=== PATIENT | female | born 1945 | race Caucasian/White ===

== ENCOUNTER 2018-01-13 03:19 | Emergency (ER) | payer MEDICARE, BC, MEDICAID ==
[~2018-01-13] VITALS: Wt 158.8 kg
[2018-01-13] MEDS ORDERED: VITAMIN C500 M8 PO (03:53)
[2018-01-13] MEDS ORDERED: NEURONTIN300 MG PO (03:53)
[2018-01-13] MEDS ORDERED: LEVOTHYROXINE100 MC1 PO (03:53)
[2018-01-13] MEDS ORDERED: MULTIVITAMINS1 EAC5 PO (03:54)
[2018-01-13] MEDS ORDERED: Lopressor25 MG PO (03:54)
[2018-01-13] MEDS ORDERED: ASPIRIN CHEWABL81 MG PO (03:54)
[2018-01-13] MEDS ORDERED: ZOCOR40 MG PO (03:55)
[2018-01-13] MEDS ORDERED: OXYBUTYNIN10 MG PO (03:55)
[2018-01-13] MEDS ORDERED: KEFLEX250 MG PO (03:56)
[2018-01-13] MEDS ORDERED: PRILOSEC20 M1 PO (03:56)
[2018-01-13] MEDS ORDERED: LINZESS290 MC1 PO (03:56)
[2018-01-13] MEDS ORDERED: ELIQUIS5 M1 PO (03:57)
[2018-01-13] MEDS ORDERED: XANAX0.25 MG PO (03:57)
[2018-01-13] MEDS ORDERED: AMITRIPTYLINE25 MG PO (04:00)
[2018-01-13] MEDS ORDERED: NORCO 5-325 TA1 EACH PO ×2 (04:00→04:01)
[2018-01-13] MEDS ORDERED: COLACE100 MG PO (04:02)
[2018-01-13 04:06] LABS: BILIRUBIN NEGATIVE (NEGATIVE); BLOOD 2+ (NEGATIVE); CLARITY CLOUDY (CLEAR); COLOR YELLOW (YELLOW); GLUCOSE NEGATIVE (NEGATIVE); KETONE NEGATIVE (NEGATIVE); LEUKO ESTERASE 3+ (NEGATIVE); NITRITE NEGATIVE (NEGATIVE); PH 5.5 (5.0-9.0); SPECIFIC GRAVITY 1.015 (1.005-1.030); UROBILINOGEN 0.2 E.U./dl (0.2-1.0)
[2018-01-13 04:18] LABS: WBC TNTC wbc/hpf (0-5)
[2018-01-13 05:31] LABS: BASO % 0.6 % (0.0-1.0); EOS # 0.5 10*3/uL (0.0-0.4); EOS % 8.9 % (1.0-4.0); HEMOGLOBIN 12.9 g/dl (12.0-16.0); LYMPH # 1.4 10*3/uL (1.3-4.4); LYMPH % 28.3 % (27.0-41.0); MEAN CELL VOLUME 100.7 fl (81.0-99.0); MEAN CORPUSCULAR HGB 31.7 pg (27.0-31.0); MEAN CORPUSCULAR HGB CONC 31.5 g/dl (33.0-37.0); MEAN PLATELET VOLUME 10.5 fl (9.6-12.3); MONO # 0.4 10*3/uL (0.1-1.0); MONO % 7.3 % (3.0-9.0); NEUT # 2.8 10*3/uL (2.3-7.9); NEUT % 54.7 % (47.0-73.0); PLATELET COUNT AUTOMATED 161 10*3/uL (130-400); RED BLOOD COUNT 4.07 10*6/uL (4.10-5.10); RED CELL DISTRI WIDTH 12.4 % (0-14.5); WHITE BLOOD COUNT 5.1 10*3/uL (4.8-10.8)
[2018-01-13 05:43] LABS: BUN 11 mg/dl (7-24); CHLORIDE 105 mmol/L (98-107); CREATININE 0.61 mg/dL (0.55-1.02); POTASSIUM 3.7 mmol/L (3.5-5.1); SODIUM 144 mmol/L (136-145)
[2018-01-13 05:44] LABS: ACETAMINOPHEN (TYLENOL) 6.9 ug/ml (10-30); ETHYL ALCOHOL < 3.0 mg/dl (<3)
[2018-01-13 05:49] LABS: URINE BARBITURATES < 200 (200ng/ml); URINE BENZODIAZEPINES > 200 (200ng/ml); URINE COCAINE < 300 (300ng/ml); URINE METHADONE < 300 (300ng/ml); URINE OPIATES > 300 (300ng/ml)
[2018-01-13 05:57] LABS: URINE AMPHETAMINES < 1000 (1000ng/ml); URINE CANNABINOIDS (THC) < 50 (50ng/ml)
[2018-01-13 06:21] LABS: URINE PHENCYCLIDINE < 25 (25ng/ml)
[2018-01-13] MEDS ORDERED: MACROBID100 M1 PO (11:34)
== END 2018-01-13 11:29 | disposition home or self-care (01) ==
LOC: ED 03:19
PROVIDERS: Emergency Medicine
DX: F32.9 Major depressive disorder, single episode, unspecified (principal); N39.0 Urinary tract infection, site not specified; R31.9 Hematuria, unspecified; Z79.899 Other long term (current) drug therapy; Z79.82 Long term (current) use of aspirin; Z91.041 Radiographic dye allergy status; Z88.5 Allergy status to narcotic agent

== ENCOUNTER 2018-08-18 16:01 | Inpatient (IN) | payer MEDICARE, MEDICAID ==
[~2018-08-18] VITALS: Ht 167.6 cm; Wt 98.4 kg
--- NOTE | ~2018-08-18 | WRIGHTHP ---
[place], [place] PATIENT HISTORY AND PHYSICAL EXAM NAME: MACK GALVEZ [facility] #: [id number] UNIT #: [id number] ROOM: 317 DOCTOR: NEEL WARNER CNP BIRTHDATE: [birth year] DOS: 08/19/2018 INITIAL PSYCHIATRIC EVALUATION CHIEF COMPLAINT: "I am not taking any of your medications". HISTORY OF PRESENT ILLNESS: This is a 73-year-old white female who was sent here from [facility] due to medical noncompliance, suicidal ideations. The patient reported that she had a plan to throw herself on the floor and hit her head. She has been hitting staff and refusing care. She has been delusional, thinking that her bed control is for to turn the light on. The patient denies to me that any of this information is true. She states that we are all liars. She was cleared medically through the Emergency Room and now she has been admitted to Behavioral Health Unit here at [place] to rule out any organic factors and to attempt to stabilize her on medications and engage her in individual and cerda milieu activity and then return her back to least restrictive environment when psychiatrically stable. PAST MEDICAL HISTORY: Remarkable for hypertension, major depression, polyneuropathy, right shoulder pain, flaccid neuropathic bladder, right below the knee amputation, anemia, hyperlipidemia, syringomyelia, peripheral vascular disease, gastroesophageal reflux disease, osteomyelitis, anxiety, hypothyroidism, vitamin D deficiency, morbid obesity, cataracts, esophagitis, gastritis, neuralgia. ALLERGIES: INCLUDE CODEINE AND IODINE COMPOUNDS. STRENGTHS: A desire to get better and return back to the facility. WEAKNESSES: Poor coping skills. MENTAL STATUS: She is alert and oriented x 3. Her mood is very labile. Affect is congruent with mood. No current paranoia or delusions noted. No current auditory or visual hallucinations noted. No gross psychosis. Her memory is intact for the most part. Her insight and judgment are poor. DIAGNOSES: Brief psychotic disorder, history of anxiety, history of major depressive disorder. PLAN: I will discontinue the Xanax 0.25 mg daily. Start the patient on Vistaril 25 mg 3 times a day, also started on Depakote 500 mg 3 times a day. We will continue Cymbalta 60 mg at bedtime. Due to the fact that the patient is here on a pink slip and is refusing to sign herself and we will proceed with the courts several commitments. We will check a VPA level in 2 days. Labs were reviewed. Her vitamin D and B12 levels are normal. H and H is normal. Sodium and potassium are normal. Glucose is normal. Hemoglobin A1c 5.2. We will continue to encourage the patient to engage in individual and cerda milieu activity. We will maintain fall and safety precautions and will plan to discharge the patient to the least restrictive environment when she is considered psychiatrically stable. [place], [place] PATIENT HISTORY AND PHYSICAL EXAM NAME: MACK GALVEZ UNIT #: [id number] ROOM: [facility] DOCTOR: NEEL WARNER CNP BIRTHDATE: [birth year] Neel Warner CNP CM:HISPHYS:PATIENT HISTORY AND PHYSICAL EXAMINATION [phone] NEEL WARNER CNP 08/19/18 1253 interface
--- NOTE | ~2018-08-18 | PR ---
[place], [place] PROGRESS NOTE [id number] #: [id number] ROOM: 317 DOCTOR: NEEL WARNER CNP BIRTHDATE: [birth year] DOS: 08/21/2018 CHIEF COMPLAINT: "I am fine." SUMMARY OF THE VISIT: The patient was interviewed. She was lying in bed in her room. She reports that she slept well last night. She reports that her mood is good. She denies feeling agitated or irritable. She reports that her appetite has been good. Staff reports that she has been taking her medications as prescribed. She has displayed no behaviors. She has been pleasant with staff and peers. MENTAL STATUS EXAMINATION: She is alert and oriented to person, place and time. She was pleasant and cooperative with me. There are no signs of alexandre or hypomania. No delusions or paranoia noted. No auditory or visual hallucinations noted. Her speech was clear with normal tone and rate. Eye contact was poor. PLAN: We will continue the patient's medications as prescribed; however, I am going to change the Depakote from Depakote syrup to Depakote Sprinkles 500 mg 3 times a day. We will plan to recheck her VPA level on Thursday. Today, the VPA level was 41. We will continue to encourage the patient to engage in individual and milieu activity. We will continue fall and safety precautions. We will plan to return the patient to the least restrictive environment when she is considered psychiatrically stable. Neel Warner CNP CM:PNTRANS [phone] NEEL WARNER CNP 08/22/18 0406 interface
--- NOTE | ~2018-08-18 | PR ---
[place], [place] PROGRESS NOTE [id number] #: [id number] ROOM: 317 DOCTOR: NEEL WARNER CNP BIRTHDATE: [birth year] DOS: 08/22/2018 CHIEF COMPLAINT: "I am doing just fine." SUMMARY OF VISIT: The patient was interviewed as she was sitting in the dining area. She reports that she slept well last night and that her appetite has been good. She reports that her mood is good. The staff reports that the patient has been cooperative. No behavior. She has been taking medications as prescribed. She has had some episodes of sleeping throughout the day, however. Otherwise, she is alert and oriented and she does arouse easily. MENTAL STATUS: She is alert and oriented to person, place and time. No alexandre or hypomania noted. No delusions or paranoia noted. No auditory or visual hallucinations noted. Her mood seems to be trending towards euthymia. No anxiety noted. Her speech is clear with normal tone and rate. Her eye contact was good. No tardive dyskinesia or extrapyramidal side effects noted. PLAN: I do plan to decrease the Risperdal to 0.25 mg twice a day to monitor to see if the patient has less episodes of sleeping during the day. Continue all other medications as prescribed. I will continue to encourage the patient to engage in individual and cerda milieu activity. We will continue fall and safety precautions. Plan to return the patient to the least restrictive environment when psychiatrically stable, which could be as soon as Thursday. Neel Warner CNP CM:PNTRANS [id number] NEEL WARNER CNP 08/22/184 interface
--- NOTE | ~2018-08-18 | DS ---
[place], [place] DISCHARGE SUMMARY NAME[id number] #: [id number] ROOM: 317 DOCTOR: SARAH BARNETT MD BIRTHDATE: [birth year] DOS: 08/23/2018 CHIEF COMPLAINT: "I am not taking any of your medications." HISTORY OF PRESENT ILLNESS: This is a 73-year-old white female who was sent here from [facility] in [place] due to medication and medical noncompliance with suicidal ideation and a plan. The patient reports that she had a plan to throw herself from her wheelchair onto the floor to hit her head. She has been hitting staff and refusing care. She has been very delusional and thinks that her bed control is to turn the lights on and off. She also believes that everyone there lies to her and deliberately is trying to get her. She is admitted now to rule out any organic factors to attempt to stabilize on medication and to return to the least restrictive environment when psychiatrically stable. SUMMARY OF HOSPITAL COURSE: The patient was admitted to the unit where her Xanax was discontinued in lieu of Vistaril 25 mg 3 times daily. Additionally, she was started on Depakote 500 mg 3 times a day to stabilize her mood and decrease her impulsivity. Initially, her Cymbalta was continued; however, this was discontinued later and Remeron 15 mg at bedtime was utilized in its place to more rapidly improve sleep and appetite. A small dose of Risperdal 0.25 mg twice daily was added to decrease her paranoia. She improved dramatically and rapidly with this combination and was sleeping and eating well. She was compliant with all aspects of her care. She was no longer paranoid, and she was not depressed. Efforts were made to find her a new placement at [facility], which she was very happy about. She was discharged there on the 08/23/2018. MENTAL STATUS AT DISCHARGE: She is alert and oriented to person, place, not necessarily time. Mood does seem to be euthymic. Affect more appropriate. There is no alexandre or hypomania. There is no gross psychosis. No paranoia. Short-term memory does have gaps, otherwise she is intact. FINAL DIAGNOSES: Intermittent explosive disorder, major depression, recurrent with psychotic features. DISPOSITION: All of her prescriptions have been printed and will be sent with her. I will be the treating psychiatrist upon her admission to [facility]. At the time of discharge, she was medically and psychiatrically stable. [place], [place] DISCHARGE SUMMARY NAME: MACK GALVEZ UNIT #: [id number] ROOM: [facility] DOCTOR: SARAH BARNETT MD BIRTHDATE: [birth year] SARAH BARNETT MD CM:DISCHARG [phone] SARAH BARNETT MD 08/23/18 1020 interface
[~2018-08-18 16:01] MED LIST: AMITRIPTYLINE25 MG PO; ASPIRIN CHEWABL81 MG PO; COLACE100 MG PO; ELIQUIS5 M1 PO; KEFLEX250 MG PO; LEVOTHYROXINE100 MC1 PO; LINZESS290 MC1 PO; Lopressor25 MG PO; MACROBID100 M1 PO; MULTIVITAMINS1 EAC5 PO; NEURONTIN300 MG PO; NORCO 5-325 TA1 EACH PO; OXYBUTYNIN10 MG PO; PRILOSEC20 M1 PO; VITAMIN C500 M8 PO; XANAX0.25 MG PO; ZOCOR40 MG PO
[2018-08-18] MEDS ORDERED: SENOKOT PO (16:18)
[2018-08-18] MEDS ORDERED: XANAX0.25 MG PO (16:19)
[2018-08-18] MEDS ORDERED: ESTRACE 0.01%42.5 GM V (16:21)
[2018-08-18] MEDS ORDERED: MACROBID100 M1 PO (16:23)
[2018-08-18] MEDS ORDERED: CYMBALTA60 MG PO (16:24)
[2018-08-18] MEDS ORDERED: B121000 MCG/1 IM (16:38)
[2018-08-18] MEDS ORDERED: VITAMIN D350000 UNIT PO (16:40)
[2018-08-18] MEDS ORDERED: IMODIUM A-D2 M2 PO (16:44)
[2018-08-18] MEDS ORDERED: PHENERGAN25 MG/1 ML PO (16:45)
[2018-08-18] MEDS ORDERED: ROBITUSSIN PEA118 ML PO (16:46)
[2018-08-18] MEDS ORDERED: SALINE NOSE SPR45 ML NAS (16:47)
[2018-08-18] MEDS ORDERED: BISACODYL10 MG R ×2 (16:48→16:54)
[2018-08-18] MEDS ORDERED: DULCOLAX5 M1 PO (16:50)
[2018-08-18] MEDS ORDERED: CITROMA296 ML PO (16:54)
[2018-08-18] MEDS ORDERED: Ipratropium Brom3 ML INH (16:56)
[2018-08-18] MEDS ORDERED: ANALGESIC CREME86 GM T (16:57)
[2018-08-18] MEDS ORDERED: TYLENOL325 M3 PO (19:32)
[2018-08-18 23:00] VITALS: BP 129/44; BP 129/64
--- NOTE | 2018-08-18 23:00 | NUR ---
MACK GALVEZ a 73 year old F admitted via stretcher from the EMERGENCY ROOM as a emergency 72 hr. hold admission. Arrived on unit at 2300. ALLERGIES: IVP DYE AND CODEINE. Vital signs are: 98.5-89-17 129/44. Admitted under the services [facility] A search was conducted and hazardous articles were removed. Client was oriented to the unit. BIBI CLAIRE
--- NOTE | 2018-08-18 23:34 | NUR ---
RAJAT NOTIFIED OF ADMISSION
--- NOTE | 2018-08-19 06:37 | NUR ---
Patient was awake throughout shift.
--- NOTE | 2018-08-19 07:28 | NUR ---
PATIENT ARGUEMENTATIVE WITH MILIEU, SWINGING AT MILIEU, STRIKING OUT WHILE TRYING TO OBTAIN VITALS; REFUSED BLOOD PRESSURE. VERBALLY THREATENING STAFF THAT HER IS A CARRIAGE RIDER AND THEY ARE GOING TO AXEL US THIS PLACE. PATIENT DISRUBIVE IN DINING ROOM. PATIENT REMOVED TO QUIET ROOM. ALSO STATED THAT THE ARM BAND IS TURNING HER LEFT HAND PURPLE. PATIENT TRYING TO BITE WRIST BAND OFF. ASSESS PATIENT'S HAND FOR CIRCULATION. ARM BAND IS LOOSE ON WRIST. PATIENT CONTINUES TO YELL OUT, TEARFUL. REFUSING TO EAT BREAKFAST. CONTINUE TO MONITOR MOOD. PATIENT IS VERY UPSET ABOUT BEING IN HOSPTIAL.
--- NOTE | 2018-08-19 08:30 | NUR ---
Treatment Plan meeting with Emily PRICE, RN, AT [facility]. Plan for discharge next week. Pt. currently remains on [place]ip.
--- NOTE | 2018-08-19 08:43 | NUR ---
PHYSICAL THERAPY PAtient not appropriate for PT this date, aggitated and argumentative. Thank you for this referral. Sandrine Bryant,PT
--- NOTE | 2018-08-19 09:40 | NUR ---
PATIENT IS ALERT TO PERSON AND PLACE, UNABLE TO RECALL CORRECT DATE WITH SLIGHT CONFUSION. MOOD IS ANGRY/IRRITABLE, LABILE AND DEMANDING. NO VOICE STATEMENT OF HI/SI OR PAIN. PATIENT TALKING TO UNSEEN OTHERS AND THEN CRYING. PATIENT REFUSING ALL MEDICATIONS FROM HOSPITAL. ALLOWED NURSE TO TAKE VITAL SIGN. DR. DELGADO NOTIFIED OF PATIENT REFUSING ALL MEDICATIONS AND ELEVATED CHOLESTEROL. 2 PERSON ASSIST WITH ACTIVITIES OF DAILY LIVING, INCONTINENT OF BOWEL AND BLADDER. ONE PERSON ASSIST WITH MEALS. Q 15 MINUTE SAFETY CHECKS MAINTAINED. PATIENT IS VERBALLY AGGRESSIVE WITH STAFF DURING ANY INTERACTIONS, SPACE PROVIDED AND CHANGE OF ENVIRONMENT NEEDED. PATIENT UP IN JESSICA CHAIR FOR COMFORT. P: STRIKING OUT AT STAFF AND VERBAL AGGRESSION I: PROVIDE ONE ON ONE, REDIRECTION AND CHANGE OF ENVIRONMENT. R: CHANGE OF ENVIRONMENT EFFFECTIVE P: CONTINUE TO MONITOR MOOD, PROVIDE ONE ON ONE AND REDIRECTION NEEDED.
[2018-08-19 10:31] VITALS: BP 146/66
[2018-08-19 10:39] LABS: ALBUMIN 3.1 gm/dl (3.1-4.5); ALKALINE PHOSPHATASE 76 U/L (45-117); BUN 10 mg/dl (7-24); CHLORIDE 103 mmol/L (98-107); CHOLESTEROL 219 mg/dL (<200); CREATININE 0.43 mg/dL (0.55-1.02); HDL CHOLESTEROL 57 mg/dl (40-60); LDL CHOLESTEROL 144 mg/dL (9-159); POTASSIUM 4.1 mmol/L (3.5-5.1); SGOT/AST 11 IU/L (3-35); SGPT/ALT 15 U/L (12-78); SODIUM 142 mmol/L (136-145); TOTAL PROTEIN 6.3 gm/dL (6.4-8.2); TRIGLYCERIDES 90 mg/dl (<150); VLDL CHOLESTEROL 18 mg/dL (6-40)
[2018-08-19 10:47] LABS: THYROID STIM HORMONE (HS) 0.331 uIU/ml (0.358-4.75)
[2018-08-19 10:49] LABS: VITAMIN D, 25-HYDROXY 85.6 ng/mL (30-100)
[2018-08-19 10:51] LABS: BASO % 0.9 % (0.0-1.0); EOS # 0.1 10*3/uL (0.0-0.4); EOS % 3.2 % (1.0-4.0); HEMATOCRIT 45.1 % (37.0-47.0); HEMOGLOBIN 14.1 g/dl (12.0-16.0); LYMPH # 0.9 10*3/uL (1.3-4.4); LYMPH % 20.8 % (27.0-41.0); MEAN CORPUSCULAR HGB CONC 31.3 g/dl (33.0-37.0); MEAN PLATELET VOLUME 10.9 fl (9.6-12.3); MONO # 0.4 10*3/uL (0.1-1.0); MONO % 8.8 % (3.0-9.0); NEUT # 2.9 10*3/uL (2.3-7.9); NEUT % 66.1 % (47.0-73.0); PLATELET COUNT AUTOMATED 206 10*3/uL (130-400); RED CELL DISTRI WIDTH 14.6 % (0-14.5); WHITE BLOOD COUNT 4.3 10*3/uL (4.8-10.8)
--- NOTE | 2018-08-19 11:34 | NUR ---
AM GROUP THERAPY AND ASSESSMENT PT WAS IN A QUIET ROOM RECLINING IN A JESSICA CHAIR. PT WAS VERY AGITATED AND VOLITILE TO ME UPON APPROACH. PT RELUCTANTLY ANSWERED ASSESSMENT QUESTIONS AND WAS VERY ANGRY AND AGGRESSIVE DURING THE ASSESSMENT, SOFTWARE TESTING SPECIALIST WAS PRESENT TO WITNESS. PT WAS VERY SUSPICIOUS, STATED, "I WILL NOT SIGN ANYTHING AND I WILL NOT DO ACTIVITIES." PT WAS LEFT TO [place] IN QUIET.
--- NOTE | 2018-08-19 11:37 | NUR ---
Patient is not appropriate for occupational therapy today. Argumentative and comabtive. Will attempt at a later date/time. Thank you for this referral, Heavenly Jaime OTR/L
--- NOTE | 2018-08-19 15:04 | NUR ---
psychosocial hx completed this date.
--- NOTE | 2018-08-19 15:14 | NUR ---
Carmenza Kim Cube Cutter here on Unit to see patient for Psychosocial Assessment. on speaker phone and advised of Voluntary Consent Form. Pt. and spoke with Elementary School Music Teacher and Social Wochace on Speaker Phone. Patient signed Consent for Voluntary admission and Hospitalization with an X. Read to patient Consent prior to Signature. Pt. Used X to sign due to degenerative Weakness in both hands.
--- NOTE | 2018-08-19 15:17 | NUR ---
client did sign the voluntary admission form.
--- NOTE | 2018-08-19 15:25 | NUR ---
GROUP THERAPY PT WAS PRESENT FOR AFTERNOON GROUP THERAPY AND WAS LESS ABRASIVE THAN THIS MORNING. PT CHOSE NOT TO PARTICIPATE BUT DID SIT AND LISTEN TO MUSIC. PT WAS REMOVED BY SW FOR ASSESSMENT. PT WILL CONTINUE TO ATTEND AND BE ENCOURAGED TO PARTICIPATE.
--- NOTE | 2018-08-19 17:00 | NUR ---
PATIENT MORE ACCEPTIVE TO RECIEVING CARE BY STAFF. PATIENT ASSISTED WITH MEALS. DEMEANOR IS CALM, COMPLAINTS OF BEING COLD. BLANKETS PROVIDED. NO COMPLAINTS OF PAIN NOTED. INTERACTIVE WITH STAFF.
[2018-08-19 20:07] VITALS: BP 110/55
--- NOTE | 2018-08-20 00:53 | NUR ---
P:MEDICATION COMPLIANCE, CONFUSION. I: PROVIDE MEDICATION EDUCATION DURING EACH MED PASS. REDIRECT, AND REORIENT. ATTEMPT TO REAPPROACH. PROVIDE 1:1 TO EXPRESS FEELINGS. R: PATIENT ALERT TO PERSON AND PLACE, REMAINS CONFUSED ON TIME. NON RECEPTIVE TO MEDICATION EDUCATION STATING "I DONT CARE IM NOT TAKING ANY OF THAT". ATTEMPTS TO REAPPROACH UNSUCCESSFUL. NON COMPLIANT WITH HS MEDICATIONS. P: CONTINUE TO PROVIDE MEDICATION EDUCATION DURING EACH MED PASS. REDIRECT AND REORIENT NEEDED. PROVIDE ONE ON ONE FOR PATIENT TO EXPRESS FEELINGS.
--- NOTE | 2018-08-20 01:09 | NUR ---
24 HOUR CHART CHECK COMPLETED.
--- NOTE | 2018-08-20 05:43 | NUR ---
PATIENT OBSERVED ON Q 15 MIN CHECKS TO HAVE SLEPT THROUGHOUT THE NIGHT WITH NO AWAKENINGS OR SIGNS AND SYMPTOMS OF DISTRESS NOTED.
--- NOTE | 2018-08-20 06:22 | NUR ---
PATIENT REFUSED AM SYNTHROID AFTER X2 ATTEMPS, PATIENT NOT RECEPTIVE TO MEDICATION EDUCATION, STATING "I DONT CARE, IM SLEEPING LEAVE ME ALONE". PATIENT ALSO REFUSED ASSISTANCE BY STAFF THIS AM, STATING "LIKE I SAID, IM SLEEPING, LEAVE ME ALONE, I DONT WANT TO GET UP YET".
[2018-08-20 07:25] VITALS: BP 126/64
--- NOTE | 2018-08-20 08:30 | NUR ---
Discharge Plan remains unchanged with Plans to discharge Patient Next week. Pt. to Return to [facility].
--- NOTE | 2018-08-20 10:54 | NUR ---
PHYSICAL THERAPY PAtien at group at this time. Thank you for this referral. Sandrine Bryant,PT
--- NOTE | 2018-08-20 11:11 | NUR ---
Updates faxed to [facility] Attn: Dianna Bruno.
--- NOTE | 2018-08-20 11:14 | NUR ---
P- LABILE MOOD, UNDERLYING IRRITABILITY. I- MOOD AND ORIENTATION ASSESSED. BEHAVIOR OBSERVED. ASSESSED FOR SI/HI AND SENSORY DISTURBANCES. MEDICATIONS ADMINISTERED ORDERED. 1:1 WITH PT, ALLOWED PT TO EXPRESS FEELINGS. EMOTIONAL SUPPORT PROVIDED. ENCOURAGED PT TO ATTEND AND PARTICIPATE IN GROUPS AND ACTIVTIES. ASSISTED MILIEU STAFF WITH HANDS ON CARE AND TRANSFER VIA OTTO LIFT. R- PT RECEPTIVE TO CONVERSATION, EASILY ENGAGED IN CONVERSATION WITH THIS NURSE. MOOD APPEARS TO BE STABLE AT THIS TIME BUT THERE IS NOTED UNDERLYING IRRITABILITY. PT BECOMES IRRITATED WITH TOO MANY QUESTIONS BEING ASKED. PT IS ALERT AND ORIENTED TO PERSON, PLACE, TIME AND SITUATION. MEMORY APPEARS TO BE INTACT. RESPS EASY AND EVEN ON ROOM AIR. PT DENIES SI/HI, INTENT OR PLAN. PT STATES "NO, I'VE NEVER BEEN SUICIDIAL! I'M AFRAID OF DYING SO THAT DOESN'T MAKE ANY SENSE FOR ME TO BE SUICIDIAL. THEY SAID SOMETHING ABOUT ME WANTING TO FALL ON THE FLOOR AND CRACK MY HEAD OPEN.. I'VE NEVER SAID THAT! THAT'S RIDICULOUS!" PT ALSO DENIES HALLUCINATIONS, NO RESPONSE TO INTERNAL STIMULI NOTED. PT DID REPORT FEELING "AFRAID" BECAUSE "I MIGHT NOT GET THE HELP I NEED" PT REASSURED STAFF IS HERE TO ASSIST WITH ANYTHING SHE MAY NEED. PT VERBALIZED UNDERSTANDING AND STATES SHE IS FEELING BETTER THAN SHE WAS UPON ADMISSION. PT IS CALM AND COOPERATIVE WITH HANDS ON CARE AND TRANSFER VIA OTTO LIFT, PT IS RELIANT ON STAFF ASSISTANCE FOR ADLS. PT HAD XLARGE BM THIS AM. PT WAS MEDICATION COMPLIANT WITHOUT DIFFICULTY THIS AM. PT WAS ABLE TO FEED SELF BREAKFAST AFTER SET UP ASSIST BY STAFF. PT CURRENTLY ATTENDING MORNING GROUP. P- PLAN TO CONTINUE CURRENT TREATMENT, MONITOR BEHAVIORS, PROVIDE 1:1, REDIRECTION AND REORIENTATION NEEDED. CONTINUE TO ADMINISTER MEDICATIONS ORDERED AND ENCOURAGE COMPLIANCE. CONTINUE Q15 MIN MONITORING. PT WAS NOTED TO HAVE AN INTACT DRESSING TO LEFT LOWER LEG, PT ALLOWED THIS RN TO ASSESS AREA, SMALL INTACT SCAB NOTED TO LLE, NO OPEN AREAS NOTED. NO DRAINAGE NOTED. CLEAN OPTIFOAM GENTLE APPLIED TO THE AREA PER PT'S REQUEST FOR PROTECTION. PT DECLINED FULL SKIN ASSESSMENT AT THIS TIME BUT REPORTS NO OTHER AREAS OF CONCERN.
--- NOTE | 2018-08-20 11:45 | NUR ---
AM GROUP THERAPY PT WAS PRESENT FOR MORNING GROUP THERAPY, RECLINED IN A JESSICA CHAIR WITH A PLEASANT DEMEANOR. PT IS UNABLE TO PARTICIPATE IN HANDS ON ACTIVITIES DUE TO PHYSICAL HANDICAP. PT FELL ASLEEP DURNING GROUP. PT WILL CONTINUE TO ATTEND AND PARTICIPATE WHEN ABLE IN GROUP ACTIVITIE. PT EXHIBITED NO AGGRESSION OR AGITATION DURING GROUP.
--- NOTE | 2018-08-20 11:55 | NUR ---
PHYSICAL THERAPY PAtient is chronic stephanie lift, no PT needs/skills. D/c PT at this time, Thank you for this referral. Sandrine Bryant,PT
--- NOTE | 2018-08-20 12:04 | NUR ---
ON UNIT TO SEE PT AT THIS TIME.
--- NOTE | 2018-08-20 13:09 | NUR ---
Adrianne was evaluated by the occupational therapist this date to assess her ability to complete ADL's. She is a resident of an [facility] and required assist with ADL's prior to hospital admit. She uses a stephanie lift for functional transfers at the [facility]. Adrianne requires max assist with upper body dressing and is dependent with lower body dressing. She is able to complete self-feeding,after set-up, by finger feeding or using utensils with thick pureed foods. 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 Adrianne is currently at her baseline and required assist with ADL's prior to hospital admit. No further acute OT at this time. Khushbu Solano OTR/L
--- NOTE | 2018-08-20 13:22 | NUR ---
PT VISITING WITH FAMILY AT THIS TIME.
--- NOTE | 2018-08-20 13:36 | NUR ---
Referral faxed to [facility] Attn: Christine at Patient and request.
--- NOTE | 2018-08-20 13:43 | NUR ---
UPDATE GIVEN TO . PT GAVE VERBAL CONSENT FOR RELEASE OF INFORMATION TO .
--- NOTE | 2018-08-20 14:49 | NUR ---
Call received From Christine linton [facility]. Unable to accept patient at this time due to behaviors. Will follow.
--- NOTE | 2018-08-20 14:50 | NUR ---
Spoke with [facility]. Female LTC Bed available. Faxed Referral to [facility] Attn: Columba.
--- NOTE | 2018-08-20 15:35 | NUR ---
PT HAS BEEN CALM, COOPERATIVE AND POLITE WITH STAFF AND PEERS THIS SHIFT. NO BEHAVIORS NOTED. NO SI/HI. NO EVIDENCE OF HALLUCINATIONS. MEDICATION COMPLIANT WITHOUT DIFFICULTY. PT REQUESTED TO LAY DOWN UNTIL DINNER. THIS NURSE AND MILIEU ASSISTED PT TO BED WITH USE OF OTTO LIFT FOR TRANSFER.
--- NOTE | 2018-08-20 15:36 | NUR ---
MUSIC AND PUZZLES PT WAS PRESENT FOR AFTERNOON GROUP AND ENJOYED LISTENING TO THE MUSIC AND OBSERVING PEERS WORK A PUZZLE. PT IS UNABLE TO PARTICIPATE WITH HANDS ON ACTVITIES DUE TO HANDICAP. PT EXHIBITED NO AGITATION OR AGGRESSION DURING GROUP. PT WILL CONTINUE TO ATTEND AND PARTCIPATE IN GROUP
--- NOTE | 2018-08-20 15:50 | NUR ---
SHIFT CHART CHECK COMPLETED.
[2018-08-20 19:45] VITALS: BP 108/61
--- NOTE | 2018-08-20 21:48 | NUR ---
P-UNDERLYING IRRITABILITY I-PROVIDE 1:1 FOR SUPPORT & VENTILATION OF FEELINGS, DISCUSS COPING MODES & RELAXATION TECHNIQUES, ADMINISTER HS MEDICATIONS, MONITOR SLEEP R-PT IS RECEPTIVE & MOOD APPEARS TO BE STABLE, SLIGHTLY IRRITABLE WITH STAFFS QUESTIONS. DENIES FEELING DEPRESSED, DENIES SUICIDAL FEELINGS & LAUGHED & STATED, "I NEVER SAID I WAS SUICIDAL & I'M NOT. I DONT KNOW WHERE THEY COME UP WITH THIS STUFF". ALERT & ORIENTED X 4. MEMORY INTACT. PT IS LIMITED WITH PHYSICAL ACTIVITIES. WATCHED TV THIS EVENING. COMPLIANT TAKING HS MEDICATIONS WHOLE P-CONTINUE TO MONIOR MOOD, ASSIST WITH NEEDS, MONITOR SLEEP
--- NOTE | 2018-08-20 22:11 | NUR ---
24 HR chart check completed.
--- NOTE | 2018-08-21 06:38 | NUR ---
PT HAS SLEPT QUIETLY THROUGHOUT THE SHIFT PAST 2144.
[2018-08-21 07:37] VITALS: BP 137/68
--- NOTE | 2018-08-21 10:30 | NUR ---
VASILIY CLAY PREPARATION SUPERVISOR COVERING FOR ON UNIT TO SEE PT AT THIS TIME.
--- NOTE | 2018-08-21 11:09 | NUR ---
P- PT IS ALERT AND ORIENTED X4. MEMORY APPEARS TO BE INTACT. RESPS EASY AND EVEN ON ROOM AIR. MOOD IS STABLE, AFFECT IS APPROPRIATE. SPEECH IS WNL AND COHERENT, ABLE TO MAKE NEEDS KNOWN WITOUT DIFFICULTY. PT IS CALM AND COOPERATIVE, DENIES SI/HI, NO AGGRESSIVE BEHAVIORS NOTED. NO IRRITABILITY NOTED. I- MOOD AND BEHAVIOR ASSESSED. ASSESSED PT FOR SI/HI AND HALLUCINATIONS/SENSORY DISTURBANCES. MEDICATIONS ADMINISTERED PER PHYSICIAN'S ORDERS. 1:1 WITH PT, ALLOWED PT TIME TO EXPRESS FEELINGS. ADL CARE PROVIDED TO PT BY MILIEU STAFF X2 ASSIST WITH UTILIZATION OF OTTO LIFT FOR TRANSFERS. ENCOURAGED PT TO ATTEND AND PARTICIPATE IN [facility] MILIEU GROUPS AND ACTIVITIES. R- PT RECEPTIVE TO CONVERSATION WITH THIS NURSE, PT ANSWERED ALL QUESTIONS WITHOUT IRRITABILITY NOTED. PT DENIES SI/HI, INTENT OR PLAN. PT STATES "I KNOW SOMEONE SAID I WANTED TO DO SOMETHING TO MYSELF BUT THAT'S RIDICULOUS. I'M AFRAID OF DYING SO WHY WOULD I SAY OR DO THAT?" PT DENIES HALLUCINATIONS, NO RESPONSE TO INTERNAL STIMULI NOTED. PT REPORTS SHE IS FEELING WELL, SLEEPING WELL AND REPORTS SHE IS IMPROVING SINCE ADMISSION. PT IS MEDICATION COMPLIANT WITHOUT DIFFICULTY. P- CONTINUE CURRENT TREATMENT. CONTINUE TO MONITOR MOOD AND BEHAVIOR, ASSESS FOR SI/HI. CONTINUE TO ADMINISTER MEDICATIONS PRESCRIBED, PROVIDE MEDICATION EDUCATION AND ENCOURAGE COMPLIANCE. CONTINUE TO ENCOURAGE PT TO ATTEND AND PARTICIPATE IN GROUPS AND ACTIVITIES. P-
--- NOTE | 2018-08-21 11:30 | NUR ---
AND ON UNIT TO SEE PT AT THIS TIME.
--- NOTE | 2018-08-21 12:54 | NUR ---
PROVIDED MED EDUCATION TO PT REGARDING PSYCHIATRIC MEDICATIONS AND RECENT MED CHANGES. PT RECEPTIVE, AGREEABLE. PT GAVE VERBAL CONSENT FOR ALL. PT ACKNOWLEDGES SHE IS FEELING BETTER WITH THE NEW MEDICINES. MEDICATION CONSENT FORM ON PT'S CHART WITNESSED BY 2RNs D/T PT INABILITY TO SIGN D/T CONTRACTURES TO BILATERAL HANDS.
--- NOTE | 2018-08-21 18:11 | NUR ---
SHIFT CHART CHECK COMPLETED.
[2018-08-21 19:16] VITALS: BP 118/73
--- NOTE | 2018-08-21 23:41 | NUR ---
P- UNDERLYING IRRITABILITY I- 1:1 TO ALLOW PATIENT TO VOICE FEELINGS AND THOUGHTS. TRIED TO POINT OUT IRRITABILITY TO PATIENT AND UNDERSTAND WHAT WAS WRONG. ASSISTED WITH ADL'S, WARM BLANKETS, AND LOW LIGHTING. HS MEDS GIVEN WITH EDUCATION PROVIDED. R- PATIENT DID NOT VOICE FEELINGS OR THOUGHTS TO THIS NURSE, PATIENT STATED THAT SHE IS TRYING TO GO TO SLEEP AFTER MEDS. PATIENT C/O BEING COLD BUT NOTHING ELSE AT THIS TIME. PATIENT MEDICATION COMPLIANT. PATIENT THANKED THIS NURSE FOR PROVIDING WARM BLANKETS FOR HER. PATIENT ALERT AND ORIENTED X4. P- CONTINUE TO MONITOR FOR IRRITABILITY EACH SHIFT. CONTINUE TO PROVIDE 1:1 TO ALLOW PATIENT TO EXPRESS FEELINGS OF IRRITABILITY AND EXPESS THOUGHTS. PROVIDE DIVERSIONAL TECHNIQUES, LOW LIGHTING, WARM BLANKETS WHEN NECESSARY. ASSIST WITH ADL'S, MEAL PREP, AND HYGIENE WHEN NECESSARY. Q15 MINUTE CHECKS MAINTAINED FOR SAFETY. FALLING STAR PROGRAM IN PLACE WITH ALARMS INTACT AND ACTIVATED. PATIENT IS A OTTO. DENIES SUICIDAL IDEATION.
--- NOTE | 2018-08-22 00:57 | NUR ---
24 HR chart check completed.
--- NOTE | 2018-08-22 04:51 | NUR ---
Q15 MINUTE CHECKS MAINTAINED THROUGHOUT THE NIGHT. PATIENT SLEPT APPROXIMATELY 6 HOURS OF SLEEP INTERRUPTED. WOKE UP PATIENT WHEN TAKING HS MEDICATION AND WOKE UP A COUPLE TIMES THROUGHOUT THE NIGHT. INCONTINENT OF URINE ONCE.
--- NOTE | 2018-08-22 06:21 | NUR ---
GETTING PATIENT UP THIS MORNING FOUND AN OPEN AREA ON PATIENTS COCCYX AREA. PICTURES OBTAINED. CALLED NURSING AUDIO VISUAL EQUIPMENT RENTAL CLERK,DEYA, SHE IS UNABLE TO COME STAGE IT AT THIS TIME DUE TO BEING IN POST CODE. [id number] CALLED, DR. DIETZ ANSWERED, NOTIFIED OF OPEN AREA ON PATIENTS COCCYX. AWAITIG WOUND TO BE STAGED AND WOUND CARE ORDERS WILL NEED PUT IN NEXT. DR. DIETZ STATED TO CALL THEM BACK ONCE THE OPEN AREA IS STAGED.
--- NOTE | 2018-08-22 06:57 | NUR ---
NURSING UTILITY BILL COLLECTOR, DEYA, UP ON FLOOR TO STAGE OPEN AREA. FOUND ANOTHER OPEN AREA ON RIGHT BUTTOCKS. DEYA STAGED BOTH AREAS STAGE TWO. COCCYX 2CM BY 0.5CM, BED RED AND MOIST. RIGHT BUTTOCKS [id number], BED RED AND MOIST. NO DRAINAGE NOTED ON EITHER AREAS. DR. DIETZ CALLED AND NOTIFIED OF NEW AREA AND OF AREAS BEING STAGED, STATED HE IS GOING TO BE PUTTING IN WOUND ORDERS.
[2018-08-22 07:28] VITALS: BP 112/77
--- NOTE | 2018-08-22 09:37 | NUR ---
PT ALERT X4, COOPERATIVE WITH CARE AND DENIES SI OR HI, SHE STATES SHE HAS NO NEGATIVE THOUGHTS AT THIS TIME BECAUSE "YOU AREN'T LIARS" P: PT BELIEVES HER PREVIOUS LTC FACITILTY LIED TO HER AND DIDN'T WANT TO TAKE CARE OF HER. SHE STATES THAT IS WHY SHE IS MEAN TO THEM I: ASSIST PT IN VOICEING HER CONCERNS AND HOW TO TALK ABOUT WHAT BOTHERS HER WITHOUT BEING COMBATIVE WITH CARE. ALSO ENCOURAGING PT TO SHIFT WEIGHT FREQUENTLY POSSIBLE R: PT STATES SHE WILL TRY TO BE CALM WITH OTHERS AND THAT SHE IS LEARNING WHILE SHE IS HERE, SHE ASKED ABOUT MEDICATIONS SHE WAS GIVEN, EDUCATION PROVIDED P: CONTINUE TO MONITOR FOR MEDICATION EFFECTIVNESS AND MONITOR FOR EMOTIONAL AND PHYSICAL TRIGGERS THAT AGITATE PT.
--- NOTE | 2018-08-22 13:04 | NUR ---
DAUGHTER IN TO VISIT PT. STATED THAT THEY TOURED ANOTHER FACILITY AND WOULD LIKE HER TO GO TO [facility] IN [facility] AND TO NOT RETURN TO [facility], NOTIFICATION SENT TO CONTACT CENTER ANALYST AT THIS TIME.
[2018-08-22 15:54] LABS: BILIRUBIN NEGATIVE (NEGATIVE); BLOOD NEGATIVE (NEGATIVE); CLARITY CLEAR (CLEAR); COLOR YELLOW (YELLOW); GLUCOSE NEGATIVE (NEGATIVE); KETONE TRACE (NEGATIVE); LEUKO ESTERASE 1+ (NEGATIVE); NITRITE NEGATIVE (NEGATIVE); UROBILINOGEN 0.2 E.U./dl (0.2-1.0)
--- NOTE | 2018-08-22 16:00 | NUR ---
PM GROUP, STORY, ART PT ATTENDED AND ATTEMPTED TO PARTICIPATE IN THE ARTWORK, BUT STATES "I'M NOT FEELING THIS TODAY ITS TOO HARD" THIS STAFF THEN ENCOURAGES PT TO LISTEN TO THE STORY. PT LISTENED BUT FELL ASLEEP ON AND OFF. PT THEN COMPLAINS ABOUT LEG PAIN. THIS STAFF INFORMS MIREYA WHO LAY PT DOWN IN BED.PT DID NOT BECOME AGGRESSIVE OR AGITATED AT THIS TIME. PT WILL CONTINUE TO BE ENCOURAGED TO ATTEND AND PARTICIPATE IN FUTURE GROUP SESSIONS.
[2018-08-22 16:04] LABS: BACTERIA TRACE; EPITHELIAL CELLS 25-30; RBC 0-2 rbc/hpf (0-2); WBC 41-50 wbc/hpf (0-5)
--- NOTE | 2018-08-22 16:09 | NUR ---
PT TOLERATED STRAIGHT CATH FOR URINE WITHOUT DIFFICULTY. RESTING QUIETLY AT THIS TIME.
--- NOTE | 2018-08-22 16:10 | NUR ---
BOB NOGUERA CALLED REQUESTING CLINICAL INFORMATION AT THIS TIME. VERIFIED WITH MRS. GALVEZ VIA 2 NURSES THAT SHE APPROVED INFORMATION TO BE SHARED. BERNARDO GORDON SW NOTIFIED OF REQUEST. PAPER WORK TO BE FAXED AT THIS TIME
[2018-08-22 19:55] VITALS: BP 138/76
--- NOTE | 2018-08-22 22:12 | NUR ---
MACK GALVEZ [id number] Please refer to the physician's history and physical for past medical history, comorbid conditions, and allergies. Diagnosis: BRIEF PSYCHOTIC DISORDER Remy Score: 13,MODERATE RISK WOUND DESCRIPTIONS: Location of the wound: RIGHT BUTTOCK Type of wound: STAGE 2 Thickness: Partial Size: 1.5cm X 0.4cm X 0.1cm Tunneling: NONE Undermining: NONE Sinus Tract: NONE Presence of Exudate: Serous Amount: Light Color: Red Odor: None Periwound Skin Appearance: Normal Wound edges: APPROXIMATED Pain (associated with wound): DENIED AT TIME OF ASSESSMENT How does patient state this happened? PATIENT UNSURE HOW THIS HAPPENED. Location of the wound: COCCYX Type of wound: STAGE 2 Thickness: Partial Size: 2.0cM X 0.4cM X 0.1cm Tunneling: NONE Undermining: NONE Sinus Tract: NONE Presence of Exudate: Serous Amount: Light Color: Red Odor: None Periwound Skin Appearance: Normal Wound edges: APPROXIMATED Pain (associated with wound): DENIED AT TIME OF ASSESSMENT How does patient state this happened? PATIENT UNSURE HOW THIS HAPPENED. Surface the patient is resting on: Proform SKIN PREVENTION RECOMMENDATION: 1. Pressure redistribution support surface as appropriate 2. Elevate heels 3. Remove boots/TEDS every shift and reapply 4. Head of bed 30 degrees as tolerated 5. Assess nutrition and hydration 6. Manage moisture 7. Avoid the use of containment devices while in bed 8. Use absorptive products on surfaces limit layers of linens on bed 9. Turn and reposition every 1-2 hours in bed and every 1 hour in chair as tolerated 10. Weight shifts every 15 minutes while up in chair 11. Offloading with pillows or device to keep heels elevated off bed 12. Monitor skin at least every shift 13. Inspect under medical devices twice a day WOUND TREATMENT RECOMMENDATIONS: CONTINUE CURRENT ORDERS.
--- NOTE | 2018-08-22 22:30 | NUR ---
P-PATIENT ALERT X4. PATIENT BELIEVES HER PREVIOUS LTC FACILITY LIED AND DIDN'T WANT TO TAKE CARE OF HER. SHE STATES THAT IS WHY SHE HAS BEEN MEAN. I-ASSIST PATIENT IN VOICING HER CONCERNS AND FEELINGS WITH STAFF. ENCOURAGE MEDICATION COMPLIANCE. R-PATIENT STATES THAT SHE IS TRYING TO BE PATIENT WITH STAFF AND SHE IS LEARNING TO EXPRESS HER CONCERNS AND FEELINGS APPROPRIATELY. P-CONTINUE TO MONITOR BEHAVIORS AND MEDICATION COMPLIANCE.
--- NOTE | 2018-08-23 00:22 | NUR ---
24 HR chart check completed.
--- NOTE | 2018-08-23 06:11 | NUR ---
PATIENT SLEPT APPROX. 8 HOURS THROUGHOUT SHIFT.
[2018-08-23 07:25] VITALS: BP 132/67
--- NOTE | 2018-08-23 08:30 | NUR ---
Treatment Plan meeting with Dr. Jones, RN, AT and Transportation Broker. Plan for discharge today if accepted at [facility].
--- NOTE | 2018-08-23 08:45 | NUR ---
Nursing reports that patient had requested referral over the weekend to [facility]. Nursing had faxed information to Tran at [facility]. Call placed to [facility] and spoke with Tran who reports that they would like updates faxed and face sheet to run insurance and that she will contact inventory planner. Advised that Dr. Jones is discharging patient today. Will follow.
--- NOTE | 2018-08-23 09:32 | NUR ---
Updates faxed to [facility] Attn:
[2018-08-23] MEDS ORDERED: DIVALPROEX SOD125 M1 PO (09:46)
[2018-08-23] MEDS ORDERED: MIRTAZAPINE15 M1 PO (09:46)
[2018-08-23] MEDS ORDERED: RISPERIDONE0.25 M2 PO (09:46)
[2018-08-23] MEDS ORDERED: HYDROXYZINE PAM25 M1 PO (09:46)
--- NOTE | 2018-08-23 11:45 | NUR ---
AM GROUP, GAMES PT ATTENDED AND PARTICIPATED THROUGH OBSERVATION DUE TO BEING HANDICAPPED. PT DID NOT BECOME AGGRESSIVE, BUT DID BECOME AGITATED DUE TO BEING UNCOMFORTABLE IN CHAIR. A NURSE ADJUSTED PT TO WHERE SHE WANTED TO BE AND WAS THEN PLEASANT. PT WILL CONTINUE TO ATTEND GROUP AND PARTICIPATE TO THE BEST OF ABILITY.
--- NOTE | 2018-08-23 11:50 | NUR ---
Updates faxed to [facility] Attn: Columba.
--- NOTE | 2018-08-23 12:18 | NUR ---
PT PLEASANT AND COOPERATIVE WITH CARE AND MEAL TODAY. STAFF REPOSITIONS PT FREQUENTLY. PT INTERACTIVE WITH PEERS TODAY, PT CAN GET FRUSTRATED WHEN STAFF HAS DIFFICULTY UNDERSTANDING HER WANTS OR NEEDS IN REFERENCE TO REPOSITIONING. SHE DOES ATTEMPT TO BE PATIENTS WITH ALL INVOLVED.
--- NOTE | 2018-08-23 14:10 | NUR ---
[facility] Liason for [facility] in to see patient on site assessment.
--- NOTE | 2018-08-23 15:41 | NUR ---
Tran from [facility] calls. Pt. accepted [facility] at facility. Pt. to discharge today.
--- NOTE | 2018-08-23 15:42 | NUR ---
PM GROUP/GAMES PT ATTENDED GROUP BUT CHOSE NOT TO PARTICIPATE. PT IN [facility]ICA CHAIR INTERACTING WITH ANOTHER PEER. PT BECAME HYSTERICAL CRYING STATING "I DIDN'T DO ANYTHING I JUST WANT TO GET OUT OF HERE" ANOTHER STAFF WAS SUPPOSED TO BRING PT THE PHONE TO CALL . PT EVENTUALLY GOT THE PHONE AND CALLED . PT CONTINUES TO BE HYSTERICAL AND EXPLAINS SHE CANT HEAR HER AND HAS THIS STAFF TALK WITH HIM. PT'S STATES "WE DIDN'T VISIT BECAUSE WE ARE WAITING TO HEAR FROM THE [facility]" THIS STAFF HAD A SHORT AMOUNT OF 1:1 TO HELP CALM PT. PT WENT BACK INTO ACTIVITIES AND WILL BE ENCOURAGED TO ATTEND FUTURE GROUP SESSIONS.
--- NOTE | 2018-08-23 16:11 | NUR ---
Transportation arranged with [facility] to transport with quill picking machine operator 8:30 p.m. Pt. Vito notified and [facility] Notified of Pt. going to another facility at family request.
--- NOTE | 2018-08-23 18:15 | NUR ---
PT COMPLAINT OF HEADACHE AND FEELING NERVOUS ABOUT HER TRANSFER TO A NEW FACILITY, REQUESTED SOMETHING FOR HER NERVES AND FOR HER HEADACHE, TYLENOL AND ATIVAN GIVEN AT THIS TIME. PRIOR TO ADMINISTRATION PT WAS GIVEN HOC, REPOSITIONED AND ASSISTED 1:1 WITH SLOW BREATHING BUT PT STATED IT WAS INEFFECTIVE.
--- NOTE | 2018-08-23 18:46 | NUR ---
NURSE TO NURSE GIVEN TO STEPHENIE AT [facility]. PAPERWORK REVIEWED WITH PT
[2018-08-23 20:10] VITALS: BP 130/65
--- NOTE | 2018-08-23 20:44 | NUR ---
Patient discharged via stretcher by [facility] ambulance to [facility]. Tolerating well.
== END 2018-08-23 20:44 | disposition other institution (70) | DRG 883 ==
LOC: 3N 16:01
PROVIDERS: Internal Medicine; ADMIT Psychiatry & Neurology Psychiatry
DX: F63.81 Intermittent explosive disorder (principal); F23 Brief psychotic disorder; R45.851 Suicidal ideations; E78.5 Hyperlipidemia, unspecified; I10 Essential (primary) hypertension; K21.9 Gastro-esophageal reflux disease without esophagitis; I48.91 Unspecified atrial fibrillation; I73.9 Peripheral vascular disease, unspecified; F41.9 Anxiety disorder, unspecified; E03.9 Hypothyroidism, unspecified; H26.9 Unspecified cataract; G62.9 Polyneuropathy, unspecified; E55.9 Vitamin D deficiency, unspecified; E66.01 Morbid (severe) obesity due to excess calories; F33.3 Major depressive disorder, recurrent, severe with psychotic symptoms; Z91.19 Patient's noncompliance with other medical treatment and regimen; Z89.511 Acquired absence of right leg below knee; Z91.048 Other nonmedicinal substance allergy status; Z88.5 Allergy status to narcotic agent; Z91.041 Radiographic dye allergy status; Z79.899 Other long term (current) drug therapy; Z79.82 Long term (current) use of aspirin; Z68.35 Body mass index [BMI] 35.0-35.9, adult